=== PATIENT | male | born 1975 ===

== ENCOUNTER 2024-07-09 19:32 | Emergency (ER) | payer SELFPAY ==
--- NOTE | ~2024-07-09 | US_ITS ---
EXAMINATION: US SCROTUM CLINICAL INFORMATION: Pain and swelling in the left scrotum. COMPARISON: None available. TECHNIQUE: A sonogram of the scrotum was performed assessing stokes-scale appearance and color Doppler flow. Spectral Doppler analysis of the arterial and venous flow were performed in the testes bilaterally. FINDINGS: There is mild scrotal wall edema. RIGHT: Right testicle measures 4.2 x 2.9 x 3.8 cm, volume 3.7 mL. No focal testicular parenchymal lesions are visualized. Spectral Doppler analysis of the arterial and venous flow is normal in the right testis. The right epididymis is more prominent than the left with increased vascularity compared to the left. Small right hydrocele present without varicocele. LEFT: Left testicle measures 4.6 x 3.0 x 4.4 cm, volume 31.7 mL. No focal testicular parenchymal lesions are visualized. Spectral Doppler analysis of the arterial and venous flow is normal in the left testis. Left epididymal head is normal in size. No left hydrocele or varicocele is seen. Left epididymal Doppler flow is normal. US/US scrotum IMPRESSION: 1. No evidence of testicular torsion. 2. Right epididymis is more prominent than the left with increased vascularity suggesting epididymitis. 3. Small right hydrocele. 4. Mild scrotal wall edema. Electronically signed by: Jaxon Whitley MD 07/09/2024 10:56 PM EDT
--- NOTE | ~2024-07-09 | US_ITS ---
EXAMINATION: US SCROTUM CLINICAL INFORMATION: Pain and swelling in the left scrotum. COMPARISON: None available. TECHNIQUE: A sonogram of the scrotum was performed assessing stokes-scale appearance and color Doppler flow. Spectral Doppler analysis of the arterial and venous flow were performed in the testes bilaterally. FINDINGS: There is mild scrotal wall edema. RIGHT: Right testicle measures 4.2 x 2.9 x 3.8 cm, volume 3.7 mL. No focal testicular parenchymal lesions are visualized. Spectral Doppler analysis of the arterial and venous flow is normal in the right testis. The right epididymis is more prominent than the left with increased vascularity compared to the left. Small right hydrocele present without varicocele. LEFT: Left testicle measures 4.6 x 3.0 x 4.4 cm, volume 31.7 mL. No focal testicular parenchymal lesions are visualized. Spectral Doppler analysis of the arterial and venous flow is normal in the left testis. Left epididymal head is normal in size. No left hydrocele or varicocele is seen. Left epididymal Doppler flow is normal. US/US scrotum doppler IMPRESSION: 1. No evidence of testicular torsion. 2. Right epididymis is more prominent than the left with increased vascularity suggesting epididymitis. 3. Small right hydrocele. 4. Mild scrotal wall edema. Electronically signed by: Jaxon Whitley MD 07/09/2024 10:56 PM EDT
[2024-07-09 19:49] VITALS: BP 157/84; PULSE 109; RESP 18; TEMP 36.7; O2SAT 100; BMI 52.3
--- NOTE | 2024-07-09 19:49 | ED_ITS ---
HPI - General Adult General Chief complaint: Urogenital-Male Stated complaint: urgent care sent for genital x-ray? Hernia? Related Data Previous Rx's ?Medication ?Instructions ?Recorded levofloxacin 500 mg tablet 500 mg PO DAILY 10 days #10 tabs 07/10/24 Allergies Allergy/AdvReac Type Severity Reaction Status Date / Time No Known Allergies Allergy Verified 07/09/24 19:53 PMFSH Social History Social History Advance Directives: No Advance Directives Information Provided: No Physical Exam ED Vital Signs: Vital Signs - 24 hr 07/09/24 19:49 Temperature 98.1 F Pulse Rate 109 H Respiratory Rate 18 Blood Pressure 157/84 H Pulse Oximetry 100 Oxygen Delivery Method Room Air BMI result Body Mass Index 52.3 Course Course Course Narrative: This is a rapid medical exam performed by Clarisa Sanabria NP: Additional HPI, ROS, PE not included below will be deferred to primary provider. Patient is a 48- year old male with history of DM, HTN presenting to the ED from urgent care. On Sunday he moved a refrigerator. Sunday night he noted left testicular swelling and pain. Then flew here (from [place]) for work. Today pain and swelling is worse. Swelling improves some with ice. Denies difficulty urinating, denies any penile discharge. Plan: U/S, UA, CT NG urine Reevaluation(s) Reevaluation #1: 07/10/2024. Patient called in regards to ultrasound results. Patient did not stay for interpretation evaluation by medical provider. Testicular ultrasound shows right testicular epididymitis. Patient informs of possibility at times it can be STI induced. Patient is sexually active but denies having any STI symptoms. Patient denies any history of STIs. Patient does not believe he has STI from partner. Patient will prefer to be treated with Levaquin instead of STI protocol. Patient will return to the ED if no improvement and also follow up with primary care provider. Patient explained worrisome signs and will return to the ED immediately. Time: 10:05 Discharge Plan Discharge Clinical Impression: Acute epididymitis Patient Disposition: Left W/O Completing Treatment Prescriptions: New levofloxacin 500 mg tablet 500 mg PO DAILY 10 Days Qty: 10 0RF Discharge Date/Time: 07/10/24 05:42
== END 2024-07-10 05:42 | disposition left against medical advice (07) ==
LOC: HO.ED 07-10 04:46
PROVIDERS: Emergency Provider Emergency Medicine
DX: N45.1 Epididymitis (principal); N50.812 Left testicular pain
CPT/HCPCS: 76870; 93975; 99281; 99284